=== PATIENT | female | born 1985 | race Caucasian/White ===

== ENCOUNTER 2020-08-16 10:32 | Outpatient (CLI) | payer OTHER ==
[2020-08-16] VITALS (7 sets, daily range): BP systolic 96–113; BP diastolic 61–67; PULSE 53–69
[~2020-08-16] VITALS: Ht 144.8 cm; Wt 60.5 kg
[2020-08-16 12:17] LABS: CSF MONONUCLEAR 50 % (70-100); CSF POLYMORPHONUCLEAR 50 % (0-6); CSF RBC 1000 /mm3 (0-0)
[2020-08-16 12:19] LABS: CSF APPEARANCE CLEAR; CSF COLOR PINK
[2020-08-16 12:33] LABS: GLUCOSE,CSF 51 mg/dL (40-70); TOTAL PROTEIN,CSF 17 mg/dL (15-45)
--- NOTE | 2020-08-16 13:45 | NUR ---
Pt able to ambulate around room with steady gait. DC instructions reviewed and she expresses understanding. She has c/o pain to low back at puncture site that radiates into upper aspect of both legs. Dr. Bravo has been in to speak with pt to reassure her. She will use OTC meds, ice and heat for discomfort and will follow up with new or worsening symptoms. She is assisted out by wheelchair to 's car.
== END 2020-08-16 13:45 | disposition home or self-care (01) ==
LOC: COL.RAD 10:32
PROVIDERS: Psychiatry & Neurology Neurology
DX: G37.9 Demyelinating disease of central nervous system, unspecified (principal); R93.0 Abnormal findings on diagnostic imaging of skull and head, not elsewhere classified

== ENCOUNTER → 2020-09-05 | Outpatient (CLI) | payer OTHER | LOC: COL.RAD 08-21 13:15 | DX: M25.512 Pain in left shoulder (principal) ==

== ENCOUNTER 2022-07-03 10:29 | Day surgery (SDC) | payer OTHER ==
[~2022-07-03] VITALS: Ht 144.8 cm; Wt 67.3 kg
[2022-07-03] MEDS ORDERED: PRILOSEC 20MG20 MG PO (11:19)
[2022-07-03] MEDS ORDERED: PEPCID 20MG TAB20 MG PO (11:20)
[2022-07-03] MEDS ORDERED: VIIBRYD10 MG PO (11:21)
[2022-07-03] MEDS ORDERED: DOSTINEX0.5 MG/TAB (11:22)
[2022-07-03] MEDS ORDERED: PYRIDIUM 100MG100 MG PO (11:24)
[2022-07-03 12:45] VITALS: BP 102/50; PULSE 58; TEMP 97.6
[2022-07-03 13:42] VITALS: BP 100/57; PULSE 73; TEMP 97.8
[2022-07-03 13:45] VITALS: BP 99/63; PULSE 71
[2022-07-03 14:00] VITALS: BP 106/71; PULSE 68
[2022-07-03 14:15] VITALS: BP 109/69; PULSE 70
== END 2022-07-03 14:40 | disposition home or self-care (01) ==
LOC: SDCO 10:29
DX: K22.4 Dyskinesia of esophagus (principal); K29.70 Gastritis, unspecified, without bleeding; F45.8 Other somatoform disorders; Z87.11 Personal history of peptic ulcer disease; Z87.891 Personal history of nicotine dependence; F17.210 Nicotine dependence, cigarettes, uncomplicated
CPT/HCPCS: J2704; J7030